=== PATIENT | male | born 1985 | race Asian ===

== ENCOUNTER 2024-01-23 12:21 | Emergency (ER) | payer BC ==
[2024-01-23] MEDS: Oxymetazoline 0.05% Nasal Spray 30 ML Bottle NASRT ONE (13:23)
[2024-01-23] MEDS: Labetalol 100 MG/20 ML MDV IVPUSH ONE ×3 (13:23→16:44)
[2024-01-23] MEDS: Sodium Chloride 0.9% 10 ML Syringe FLUSH PRN (13:24)
[2024-01-23 13:30] LABS: BASOPHILS PERCENT AUTO 0.3 % (0.0-1.0); EOSINOPHILS ABSOLUTE AUTO 0.1 K/mm3 (0.0-0.4); EOSINOPHILS PERCENT AUTO 0.9 % (0.0-6.0); HEMATOCRIT 48.8 % (42.0-52.0); HEMOGLOBIN 16.4 gm/dl (14.0-18.0); IMMATURE GRAN ABSOLUTE AUTO 0.02 K/mm3 (0.00-0.05); IMMATURE GRAN PERCENT AUTO 0.2 % (0.0-0.4); LYMPHOCYTES ABSOLUTE AUTO 2.4 K/mm3 (1.0-4.8); LYMPHOCYTES PERCENT AUTO 23.8 % (24.0-44.0); MEAN CORPUSCULAR HEMOGLOBIN 28.4 pg (28.0-32.0); MEAN CORPUSCULAR HGB CONC 33.6 g/dl (32.0-36.0); MEAN CORPUSCULAR VOLUME 84.6 fl (83.0-99.0); MEAN PLATELET VOLUME 10.2 fl (9.4-12.4); MONOCYTES ABSOLUTE AUTO 0.5 K/mm3 (0.0-0.8); MONOCYTES PERCENT AUTO 4.9 % (0.0-8.0); NEUTROPHILS PERCENT AUTO 69.9 % (41.0-71.0); PLATELET COUNT,PLT 228 K/mm3 (150-400); RED BLOOD CELL COUNT 5.77 M/mm3 (4.52-5.90)
[2024-01-23 14:04] LABS: A/G RATIO 1.1 (1-2); ALBUMIN 4.1 g/dl (3.4-5.0); ANION GAP 15.6 (5-15); BILIRUBIN TOTAL 0.6 mg/dL (0.2-1.0); BUN/CREATININE RATIO 15.6 (14-18); CALCIUM 9.3 mg/dL (8.5-10.1); CREATININE 0.9 mg/dL (0.7-1.3); EST CRCL DRUG DOSING (CG) 106.09 mL/min; POTASSIUM,K 3.6 mEq/L (3.5-5.1)
[2024-01-23 14:08] LABS: TSH 2.236 uIU/mL (0.358-3.74)
[2024-01-23] MEDS: hydrALAZINE 20 MG/ML SDV IVPUSH ONE ×2 (14:24→15:17)
[2024-01-23] MEDS: Losartan 50 MG Tab PO ONE (15:18)
== END 2024-01-23 18:13 | disposition home or self-care (01) ==
LOC: JD.ED 12:21
DX: R04.0 Epistaxis (principal); I10 Essential (primary) hypertension; Z79.899 Other long term (current) drug therapy; Z86.16 Personal history of COVID-19
CPT/HCPCS: 36415; 70450; 71046; 80053; 84443; 84484; 85025; 93005; 96374; 96375; 96376; 99284; A9270; J0360; J1921; J3490; 93010